=== PATIENT | female | born 1980 | race Caucasian/White ===

== ENCOUNTER 2021-07-18 16:13 | Emergency (ER) | payer OTHER ==
[~2021-07-18] VITALS: Ht 147.3 cm; Wt 97.5 kg
[2021-07-18 18:53] LABS: URINE BILIRUBIN NEGATIVE (Negative); URINE BLOOD NEGATIVE (Negative); URINE CLARITY CLEAR; URINE COLOR YELLOW; URINE GLUCOSE-RANDOM NEGATIVE (Negative); URINE KETONES NEGATIVE (Negative); URINE LEUKOCYTES-REFLEX NEGATIVE (Negative); URINE NITRITE-REFLEX NEGATIVE (Negative); URINE PROTEIN NEGATIVE (Negative); URINE SPECIFIC GRAVITY 1.025 (1.005-1.030); URINE UROBILINOGEN 0.2 E.U./dl (0.2-1.0)
[2021-07-18 19:03] LABS: ABSOLUTE BASOPHILS 0.1 thou/uL (0.0-0.2); ABSOLUTE EOSINOPHILS 0.1 thou/uL (0.0-0.7); ABSOLUTE LYMPHOCYTES 1.5 thou/uL (0.8-5.3); ABSOLUTE MONOCYTES 0.4 thou/uL (0.0-1.2); ABSOLUTE NEUTROPHILS 5.6 thou/uL (1.6-8.1); BASOPHILS 1.3 %; EOSINOPHILS 1.9 %; HEMATOCRIT 39.4 % (37.0-47.0); HEMOGLOBIN 13.1 gm/dL (12.0-15.0); LYMPHOCYTES 19.6 %; MCH 32.9 pg (26.0-34.0); MCHC 33.2 g/dL (28.0-37.0); MCV 99.1 fL (80.0-100.0); MONOCYTES 4.9 %; MPV 9.1 fl. (7.2-11.1); NUCLEATED RBCS 0 /100WBC; PLATELET COUNT* 196 thou/uL (150-400); POLYS 72.3 %; RBC 3.97 mil/uL (4.20-5.00); RDW-CV 14.4 % (10.5-14.5); WBC 7.7 thou/uL (4.0-11.0)
[2021-07-18 19:13] LABS: CALCIUM 8.6 mg/dL (8.5-10.1); CREATININE 0.9 mg/dL (0.6-1.3); POTASSIUM 3.9 mmol/L (3.5-5.1)
[2021-07-18 19:18] LABS: ALBUMIN 3.7 g/dL (3.4-5.0); TOTAL BILIRUBIN 0.7 mg/dL (<0.1-1.0); TOTAL PROTEIN 7.5 g/dL (6.4-8.2)
[2021-07-19] MEDS ORDERED: ACETAMINOPHEN-1 EAC2 PO (00:54)
[2021-07-19] MEDS ORDERED: TORADOL 10 MG T10 MG PO (00:54)
[2021-07-19 01:10] VITALS: BP 130/88
== END 2021-07-19 01:11 | disposition still patient (30) ==
LOC: M.ERS 16:13
PROVIDERS: Physician Assistant
DX: N83.202 Unspecified ovarian cyst, left side (principal); R10.32 Left lower quadrant pain; R10.2 Pelvic and perineal pain; Z91.041 Radiographic dye allergy status